=== PATIENT | male | born 1945 | race Caucasian/White ===

== ENCOUNTER 2020-04-05 10:13 | Outpatient (CLI) | payer MEDICARE, BC | END 2020-04-05 10:14 | disposition home or self-care (01) | LOC: LAB.S 10:13 | PROVIDERS: ATTEND Nurse Practitioner | DX: N41.1 Chronic prostatitis (principal); N30.01 Acute cystitis with hematuria | CPT/HCPCS: 36415; 84153; 87086 ==

== ENCOUNTER 2020-05-14 16:45 | Outpatient (CLI) | payer MEDICARE, BC ==
[2020-05-14 19:52] LABS: CREATININE 1.3 mg/dL (0.6-1.2)
== END 2020-05-14 16:46 | disposition home or self-care (01) ==
LOC: LAB.S 16:45
PROVIDERS: ATTEND Urology
DX: N28.89 Other specified disorders of kidney and ureter (principal)
CPT/HCPCS: 36415; 82565

== ENCOUNTER 2020-06-26 10:20 | Outpatient (CLI) | payer MEDICARE, BC | END 2020-06-26 23:59 | disposition home or self-care (01) | LOC: LAB.R 10:20 | PROVIDERS: ATTEND Physician Assistant Medical | DX: N39.0 Urinary tract infection, site not specified (principal) | CPT/HCPCS: 87086; 87181 ==

== ENCOUNTER 2020-10-05 07:10 | Outpatient (CLI) | payer MEDICARE, BC ==
[2020-10-05 15:40] LABS: CHOL/HDL RATIO 3.8 (<5.0); CHOLESTEROL 252 mg/dL; HDL CHOLESTEROL 67 mg/dL; LDL CHOLESTEROL,CALCULATED 177 mg/dL; LDL/HDL RATIO 2.6 (<3.6); VLDL CHOLESTEROL 8 mg/dL
== END 2020-10-05 07:11 | disposition home or self-care (01) ==
LOC: LAB.S 07:10
PROVIDERS: ATTEND Internal Medicine
DX: E78.00 Pure hypercholesterolemia, unspecified (principal)
CPT/HCPCS: 36415; 80061; 83721

== ENCOUNTER 2021-05-18 08:00 | Outpatient (CLI) | payer MEDICARE, BC ==
[2021-05-18 15:03] LABS: BILIRUBIN,URINE NEGATIVE (NEGATIVE); CLARITY,URINE CLEAR (CLEAR); GLUCOSE, URINE (UA) NEGATIVE (NEGATIVE); KETONES,URINE (UA) NEGATIVE (NEGATIVE); LEUKOCYTE ESTERASE, URINE NEGATIVE (NEGATIVE); NITRITE,URINE NEGATIVE (NEGATIVE); OCCULT BLOOD,URINE NEGATIVE (NEGATIVE); PROTEIN,URINE NEGATIVE (NEGATIVE); UROBILINOGEN,URINE 0.2 (NORMAL) E.U./dL (NORMAL)
[2021-05-18 15:14] LABS: BACTERIA,URINE None Seen /HPF (None Seen); RBC,URINE 0-5 /HPF (0-5); SQUAMOUS EPITHELIAL CELL,UR NONE SEEN (<= Few); WBC,URINE 0-3 /HPF (0-3)
[2021-05-18 15:15] LABS: SPERM,URINE PRESENT
== END 2021-05-18 23:59 | disposition home or self-care (01) ==
LOC: LAB.S 08:00
PROVIDERS: ATTEND Physician Assistant Medical
DX: R39.11 Hesitancy of micturition (principal)
CPT/HCPCS: 81001; 87086

== ENCOUNTER 2021-12-05 11:45 | Outpatient (CLI) | payer MEDICARE, BC ==
[2021-12-05 15:28] LABS: PSA FREE 0.157 ng/mL (0.16-2.81)
[2021-12-05 15:30] LABS: PSA TOTAL 0.618 ng/mL (0.000-2.000)
== END 2021-12-05 11:46 | disposition home or self-care (01) ==
LOC: LAB.S 11:45
PROVIDERS: ATTEND Urology
DX: N40.1 Benign prostatic hyperplasia with lower urinary tract symptoms (principal); N13.8 Other obstructive and reflux uropathy
CPT/HCPCS: 36415; 84153; 84154

== ENCOUNTER 2022-02-20 11:31 | Outpatient (CLI) | payer MEDICARE, BC ==
[2022-02-20 14:25] LABS: ALBUMIN 4.1 g/dL (3.2-5.5); BILIRUBIN,DIRECT 0.1 mg/dL (0.1-0.5); BILIRUBIN,TOTAL 0.8 mg/dL (0.2-1.0); TOTAL PROTEIN 6.6 g/dL (6.7-8.2)
== END 2022-02-20 11:32 | disposition home or self-care (01) ==
LOC: LAB.S 11:31
PROVIDERS: ATTEND Internal Medicine
DX: Z51.81 Encounter for therapeutic drug level monitoring (principal)
CPT/HCPCS: 36415; 80076

== ENCOUNTER 2022-07-03 10:46 | Outpatient (CLI) | payer MEDICARE, BC ==
[2022-07-03 15:28] LABS: ALBUMIN 4.1 g/dL (3.2-5.5); BILIRUBIN,DIRECT 0.2 mg/dL (0.1-0.5); BILIRUBIN,TOTAL 0.7 mg/dL (0.2-1.0); TOTAL PROTEIN 6.8 g/dL (6.7-8.2)
== END 2022-07-03 10:47 | disposition home or self-care (01) ==
LOC: LAB.S 10:46
PROVIDERS: ATTEND Family Medicine
DX: B35.1 Tinea unguium (principal)
CPT/HCPCS: 36415; 80076

== ENCOUNTER 2023-01-16 17:52 | Emergency (ER) | payer MEDICARE, BC ==
[2023-01-16] MEDS ORDERED: SODIUM CHLORIDE 0.9% 1,000 ML IV STA ×2 (18:22)
[2023-01-16 18:23] LABS: BASOPHILS % (AUTO) 0.3 %; EOSINOPHILS # (AUTO) 0.1 10^3/uL (0.0-0.7); HCT - HEMATOCRIT 46.4 % (42.0-52.0); HGB - HEMOGLOBIN 15.3 g/dL (14.0-18.0); LYMPHOCYTES % (AUTO) 14.1 %; MEAN CORPUSCULAR HEMOGLOBIN 31.8 pg (27.0-31.0); MEAN CORPUSCULAR VOLUME 96.5 fL (80.0-94.0); MEAN PLATELET VOLUME 9.9 fL (7.4-11.4); MONOCYTES # (AUTO) 0.8 10^3/uL (0.0-1.0); MONOCYTES % (AUTO) 11.5 %; NEUTROPHILS # (AUTO) 4.9 10^3/uL (1.5-6.6); NEUTROPHILS % (AUTO) 72.8 %; PLT - PLATELET COUNT 194 10^3/uL (130-450); RED BLOOD COUNT 4.81 10^6/uL (4.70-6.10); RED CELL DISTRIBUTION WIDTH 11.5 % (12.0-15.0); WHITE BLOOD COUNT 6.7 x10^3/uL (4.8-10.8)
--- NOTE | 2023-01-16 18:29 | ED Physician Documentation ---
History of Present Illness - Stated complaint Stated Complaint: BLEEDING - Chief complaint Chief Complaint: Abd Pain - History obtained from History obtained from: Patient, Family - History of Present Illness Timing: How many days ago (3) Pain level max: 0 Pain level now: 0 - Additonal information Additional information: 77-year-old male brought into the emergency department with his for diarrhea for the past 3 days. They went to the walk-in clinic today and he was found to have a small amount of bilirubin in his urine. The walk-in clinic noted that he was on terbinafine for the past 10 days for toenail fungus and noted he had not had his liver test checked in that time so they sent him here to have his liver tests checked. No fevers. No chills. Loose watery stools. No vomiting. No recent antibiotics. No recent travel. No abdominal pain. Review of Systems Constitutional: denies: Fever, Chills Cardiac: denies: Chest pain / pressure, Palpitations Respiratory: denies: Cough GI: reports: Diarrhea. denies: Nausea, Vomiting, Hematemesis, Bloody / black stool Skin: denies: Rash Musculoskeletal: denies: Neck pain, Back pain Neurologic: denies: Headache PD PAST MEDICAL HISTORY - Past Medical History Past Medical History: Yes : Benign prostate hypertrophy - Past Surgical History General: Bowel surgery - Present Medications Home Medications: Ambulatory Orders Medication Instructions Recorded Confirmed Finasteride [Proscar] 5 mg PO DAILY 01/16/23 01/16/23 Tamsulosin [Flomax] 0.4 mg PO DAILY 01/16/23 01/16/23 Terbinafine [LamISIL] 250 mg PO DAILY 01/16/23 01/16/23 - Allergies Allergies/Adverse Reactions: Allergies Allergy/AdvReac Type Severity Reaction Status Date / Time No Known Drug Allergies Allergy Verified 01/16/23 18:02 - Social History Does the pt smoke?: No Smoking Status: Never smoker PD ED PE NORMAL - Vitals Vital signs reviewed: Yes - General General: Alert and oriented X 3, No acute distress - HEENT HEENT: PERRL, Pharynx benign, Other (Dry lips and tongue) - Neck Neck: Supple, no meningeal sign - Cardiac Cardiac: RRR, Strong equal pulses - Respiratory Respiratory: No respiratory distress, Clear bilaterally - Abdomen Abdomen: Soft, Non tender, Non distended - Derm Derm: Warm and dry - Extremities Extremities: No edema, No calf tenderness / cord - Neuro Neuro: Alert and oriented X 3 - Psych Psych: Normal mood, Normal affect Results - Vitals Vitals: Vital Signs - 24 hr 01/16/23 01/16/23 18:02 19:05 Temperature 36.5 C 36.8 C Heart Rate 98 75 Respiratory 16 15 Rate Blood Pressure 127/68 120/62 O2 Saturation 98 98 Oxygen O2 Source Room air - Labs Labs: Laboratory Tests 01/16/23 01/16/23 01/16/23 18:09 18:16 18:16 WBC 6.7 RBC 4.81 Hgb 15.3 Hct 46.4 MCV 96.5 H MCH 31.8 H MCHC 33.0 RDW 11.5 L Plt Count 194 MPV 9.9 Neut # (Auto) 4.9 Lymph # (Auto) 1.0 L Payne # (Auto) 0.8 Eos # (Auto) 0.1 Baso # (Auto) 0.0 Absolute Nucleated RBC 0.00 Nucleated RBC % 0.0 Sodium 138 Potassium 3.1 L Chloride 103 Carbon Dioxide 28 Anion Gap 7.0 BUN 20 Creatinine 1.2 Estimated GFR (MDRD) 58 L Glucose 121 H Calcium 8.7 Total Bilirubin 0.6 AST 21 ALT 23 Alkaline Phosphatase 63 Total Protein 7.0 Albumin 3.7 Globulin 3.3 Albumin/Globulin Ratio 1.1 Lipase 35 Urine Color YELLOW Urine Clarity CLEAR Urine pH 6.0 Ur Specific [place] 1.015 Urine Protein TRACE Urine Glucose (UA) NEGATIVE Urine Ketones TRACE Urine Occult Blood TRACE-INTA Urine Nitrite NEGATIVE Urine Bilirubin NEGATIVE Urine Urobilinogen 0.2 (NORMAL) Ur Leukocyte Esterase NEGATIVE Ur Microscopic Review NOT INDICATED Urine Culture Comments NOT INDICATED PD Medical Decision Making - ED course Complexity details: reviewed results, re-evaluated patient, considered differential, d/w patient ED course: 77-year-old male with diarrhea for the past several days. No acute findings on CBC, ER abdominal panel or urinalysis. He was given IV fluids and feels better. Abdomen is soft, nontender nondistended on serial exam. No indication for CT scan. No evidence of liver issue as well as the concern from the walk-in clinic. We will have him follow-up with his doctor for further care. Patient counseled regarding signs and symptoms for which I believe and urgent re- evaluation would be necessary. Patient with good understanding of and agreement to plan and is comfortable going home at this time This document was made in part using voice recognition software. While efforts are made to proofread this document, sound alike and grammatical errors may occur. Departure - Departure Disposition: 01 Home, Self Care Clinical Impression: Dehydration Diarrhea Qualifiers: Diarrhea type: unspecified type Qualified Code(s): R19.7 - Diarrhea, unspecified Condition: Good Instructions: ED Dehydration, ED Diarrhea Viral Follow-Up: LIZETTE CHATMAN MD [Primary Care Provider] - Within 1 week Comments: Please make sure you are drinking plenty of water at home. Please follow-up with your doctor as needed for further care. Your CBC, electrolytes and liver test did not show any significant abnormalities today. Your potassium is mildly decreased, but this is not unexpected during an acute illness. You were given I V fluids today. Please return if you worsen Discharge Date/Time: 01/16/23 19:06
[2023-01-16 18:35] LABS: ALBUMIN 3.7 g/dL (3.2-5.5); ALBUMIN/GLOBULIN RATIO 1.1 (1.0-2.2); BILIRUBIN,TOTAL 0.6 mg/dL (0.2-1.0); CALCIUM 8.7 mg/dL (8.5-10.3); CREATININE 1.2 mg/dL (0.6-1.2); POTASSIUM 3.1 mmol/L (3.5-5.0)
[2023-01-16 18:40] LABS: BILIRUBIN,URINE NEGATIVE (NEGATIVE); GLUCOSE, URINE (UA) NEGATIVE (NEGATIVE); KETONES,URINE (UA) TRACE mg/dL (NEGATIVE); LEUKOCYTE ESTERASE, URINE NEGATIVE (NEGATIVE); NITRITE,URINE NEGATIVE (NEGATIVE); OCCULT BLOOD,URINE TRACE-INTA (NEGATIVE); PROTEIN,URINE TRACE mg/dL (NEGATIVE); UROBILINOGEN,URINE 0.2 (NORMAL) E.U./dL (NORMAL)
[2023-01-16 18:44] LABS: CLARITY,URINE CLEAR (CLEAR)
--- OUTSIDE RECORDS SUMMARY | 2023-01-16 18:57 | EXTERNAL MEDICAL SUMMARY RPT | Continuity of Care Document ---
Author Name Unknown Address [address] [place] [address] Phone Organization [facility] Address [address] [place] [address] Phone Care Team Providers Care Site Operations Manager Name Role Phone Unavailable Unavailable Unavailable Katharine Patient Registrar, Rufina Unavailable Unavailable Mal Swartz Md Unavailable Unavailable Medications date description facility 2023-01-16 00:00 [facility]afil [facility] 2023-01-16 00:00 finasteride [facility] 2023-01-16 00:00 finasteride [facility] 2023-01-16 00:00 terbinafine hcl [facility] 2023-01-16 00:00 tamsulosin [facility] 2023-01-16 00:00 [facility]asteride [facility] 2023-01-16 00:00 finasteride [facility] 2023-01-16 00:00 [facility]asteride [facility] 2023-01-16 00:00 finasteride [facility] 2023-01-16 00:00 sildenafil [facility] 2023-01-16 00:00 terbinafine hcl [facility] 2023-01-16 00:00 terbinafine hcl [facility] 2023-01-16 00:00 sildenafil [facility] 2023-01-16 00:00 sildenafil [facility] 2023-01-16 00:00 finasteride [facility] 2023-01-16 00:00 finasteride [facility] 2023-01-16 00:00 tamsulosin [facility] 2023-01-16 00:00 tamsulosin [facility] 2023-01-16 00:00 terbinafine hcl [facility] 2023-01-16 00:00 tamsulosin [facility] Problems date description facility 2023-01-16 00:00 Diarrhea [facility] 2023-01-16 00:00 Diarrhea, unspecified [facility] Procedures date description facility 2023-01-16 00:00 Visit Code Hold [facility] 2023-01-16 00:00 POC URINALYSIS DIP [facility] Results/Labs test date author facility value unit interpretation Result panel 1 (unknown) (no date) (unknown) [facility] (no value) (units unknown) (unknown) Result panel 2 (unknown) (no date) (unknown) [facility] (no value) (units unknown) (unknown) Result panel 3 (unknown) (no date) (unknown) [facility] (no value) (units unknown) (unknown) Result panel 4 (unknown) (no date) (unknown) [facility] (no value) (units unknown) (unknown) Result panel 5 (unknown) (no date) (unknown) [facility] (no value) (units unknown) (unknown) Result panel 6 (unknown) (no date) (unknown) [facility] (no value) (units unknown) (unknown) Result panel 7 (unknown) (no date) (unknown) [facility] (no value) (units unknown) (unknown) Result panel 8 (unknown) (no date) (unknown) [facility] (no value) (units unknown) (unknown) Result panel 9 (unknown) (no date) (unknown) [facility] (no value) (units unknown) (unknown) Result panel 10 (unknown) (no date) (unknown) [facility] (no value) (units unknown) (unknown) Result panel 11 (unknown) (no date) (unknown) [facility] (no value) (units unknown) (unknown) Result panel 12 (unknown) (no date) (unknown) [facility] (no value) (units unknown) (unknown) Result panel 13 (unknown) (no date) (unknown) [facility] (no value) (units unknown) (unknown) Vital Signs date measurement value units 2023-01-16 00:00 BMI 23.55 kg/m2 2023-01-16 00:00 BP_diastolic 71 mmHg 2023-01-16 00:00 BP_systolic 111 mmHg 2023-01-16 00:00 heart_rate 78 /min 2023-01-16 00:00 height_metric 180.34 cm 2023-01-16 00:00 height_standard 71 in 2023-01-16 00:00 respiration_rate 18 /min 2023-01-16 00:00 temperature_metric 36.33 C 2023-01-16 00:00 temperature_standard 97.4 F 2023-01-16 00:00 weight_metric 76.32 kg 2023-01-16 00:00 weight_standard 168.25 lb
[2023-01-16 19:07] VITALS: BP 120/62
== END 2023-01-16 19:06 | disposition home or self-care (01) ==
LOC: ED 17:52
DX: E86.0 Dehydration (principal); R19.7 Diarrhea, unspecified
CPT/HCPCS: 36415; 80053; 81001; 81003; 83690; 85025; 87086; 96360; 99283

== ENCOUNTER 2023-03-29 11:05 | Outpatient (CLI) | payer MEDICARE, BC ==
[2023-03-29 14:40] LABS: ALBUMIN 4.1 g/dL (3.2-5.5); ALKALINE PHOSPHATASE 62 IU/L (42-121); ALT ALANINE AMINOTRANSFERASE 15 IU/L (10-60); AST ASPARTATE AMINOTRANSFERASE 16 IU/L (10-42); BILIRUBIN,DIRECT < 0.10 mg/dL (0.03-0.18); BILIRUBIN,TOTAL 0.5 mg/dL (0.2-1.0); TOTAL PROTEIN 6.6 g/dL (6.4-8.9)
== END 2023-03-29 11:06 | disposition home or self-care (01) ==
LOC: LAB.S 11:05
PROVIDERS: ATTEND Family Medicine
DX: Z79.899 Other long term (current) drug therapy (principal)
CPT/HCPCS: 36415; 80076

== ENCOUNTER 2023-09-24 11:04 | Outpatient (CLI) | payer MEDICARE, BC ==
[2023-09-24 15:32] LABS: ALBUMIN 4.2 g/dL (3.2-5.5); ALBUMIN/GLOBULIN RATIO 1.8 (1.0-2.2); ALKALINE PHOSPHATASE 57 IU/L (42-121); ALT ALANINE AMINOTRANSFERASE 17 IU/L (10-60); AST ASPARTATE AMINOTRANSFERASE 17 IU/L (10-42); BILIRUBIN,TOTAL 0.5 mg/dL (0.2-1.0); BUN - BLOOD UREA NITROGEN 20 mg/dL (6-20); CALCIUM 9.3 mg/dL (8.5-10.3); CARBON DIOXIDE - CO2 29 mmol/L (21-32); CHLORIDE 106 mmol/L (101-111); CHOL/HDL RATIO 2.8 (<5.0); CHOLESTEROL 213 mg/dL; GFR - MDRD 72 (>89); GLUCOSE 95 mg/dL (74-104); HDL CHOLESTEROL 75 mg/dL; LDL CHOLESTEROL,CALCULATED 125 mg/dL; LDL/HDL RATIO 1.7 (<3.6); POTASSIUM 4.5 mmol/L (3.5-4.5); SODIUM 139 mmol/L (135-145); TOTAL PROTEIN 6.6 g/dL (6.4-8.9); TRIGLYCERIDES 64 mg/dL (48-352); VLDL CHOLESTEROL 13 mg/dL
[2023-09-24 19:36] LABS: ESTIMATED AVERAGE GLUCOSE 105 mg/dL (70-100); HEMOGLOBIN A1c% 5.3 % (4.27-6.07)
== END 2023-09-24 11:05 | disposition home or self-care (01) ==
LOC: LAB.S 11:04
PROVIDERS: ATTEND Family Medicine
DX: E78.00 Pure hypercholesterolemia, unspecified (principal); B35.1 Tinea unguium
CPT/HCPCS: 36415; 80053; 80061; 83036; 83721